=== PATIENT | male | born 1970 | race Two or more races ===

== ENCOUNTER 2019-01-01 15:51 | Day surgery (SDC) | payer OTHER, MEDICAID ==
[~2019-01-01 15:51] MED LIST: CEFAZOLIN 1 GM INJ; CEFAZOLIN 2 GM/50 ML (PMX) 50 ML IVPB; LACTATED RINGER'S 1,000 ML IV*
[2019-01-01] MEDS ORDERED: ONDANSETRON 4 MG INJ IV (16:30)
[2019-01-01] MEDS ORDERED: MEPERIDINE 25 MG INJ IV (16:30)
[2019-01-01] MEDS ORDERED: LABETALOL HCL 20MG INJ IV (16:30)
[2019-01-01] MEDS ORDERED: PROCHLORPERAZINE 10 MG INJ IV (16:30)
[2019-01-01] MEDS ORDERED: DIPHENHYDRAMINE 50 MG INJ IV (16:30)
[2019-01-01] MEDS ORDERED: HYDROmorphONE 1 MG/5 ML IV SYRINGE IV ×3 (16:30)
[2019-01-01] MEDS ORDERED: FENTAnyl 50 MCG/ML VIAL IV ×3 (16:30)
[2019-01-01] MEDS ORDERED: OXYCODONE/ACETAMINOPHEN (5/325) TAB PO (16:30)
[2019-01-01] MEDS ORDERED: PROPOFOL 20 ML (16:50)
[2019-01-01] MEDS ORDERED: MIDAZOLAM 1 MG/ML 2 ML INJ (16:50)
[2019-01-01] MEDS ORDERED: LIDOCAINE 2% (SDV) 5 ML INJ (16:50)
[2019-01-01] MEDS ORDERED: ROPIVACAINE 0.5 % 30 ML VIAL (16:57)
[2019-01-01] MEDS ORDERED: FENTAnyl 50 MCG/ML VIAL ×2 (17:10→18:20)
[2019-01-01] MEDS ORDERED: ONDANSETRON 4 MG INJ (17:11)
[2019-01-01] MEDS ORDERED: DEXAMETHASONE 4 MG/ML 5 ML INJ (17:11)
[2019-01-01] MEDS: POLYMYXIN/BACITRACIN 1L IRRIG (17:41)
[2019-01-01] MEDS ORDERED: EPHEDrine 50 MG INJ (17:54)
[2019-01-01] MEDS: hydrALAzine 20 MG INJ IV ×3 (18:54→19:38)
== END 2019-01-01 20:49 | disposition home or self-care (01) ==
LOC: SDS 15:51
DX: S52.571D Other intraarticular fracture of lower end of right radius, subsequent encounter for closed fracture with routine healing (principal); X58.XXXD Exposure to other specified factors, subsequent encounter; G56.01 Carpal tunnel syndrome, right upper limb; I10 Essential (primary) hypertension; E66.9 Obesity, unspecified; Z68.32 Body mass index [BMI] 32.0-32.9, adult
CPT/HCPCS: 64721; 73110-RT